=== PATIENT | male | born 1995 | race Caucasian/White ===

== ENCOUNTER 2017-10-23 09:19 | Emergency (ER) | payer BC, SELFPAY ==
[2017-10-23 09:37] VITALS: BP 122/71; PULSE 70; RESP 16; TEMP 36.9; O2SAT 99
--- NOTE | 2017-10-23 10:06 | DI.REPORT_ITS ---
SYMPTOM/DIAGNOSIS: LAT MAL PAIN AFTER HEARING POP LEFT ANKLE: There is mild soft tissue swelling around the malleoli. No fracture or ankle mortise widening is seen. IMPRESSION: Negative left ankle.
[2017-10-23 10:10] VITALS: TEMP 36.9
[2017-10-23] MEDS: Ibuprofen 800 MG TAB PO (10:10)
[2017-10-23] MEDS: Acetaminophen 500 MG TAB 1000 MG PO (10:10)
--- NOTE | 2017-10-23 10:11 | ED.GENADUL_ITS ---
Disposition Clinical Impression: Left ankle pain Disposition: HOME Condition: Good Instructions: Ankle Sprain (ED), RICE Therapy (ED) Additional Instructions: Please use the brace and crutches as directed. Please use ice, Tylenol and Motrin as directed. Please follow-up with the primary care provider that we will provide you. If you notice any worsening of your symptoms, or any new symptoms such as calf pain, worsening leg pain, vomiting, diarrhea, fever, chills, shortness of breath, chest pain, numbness, weakness, or fainting , please return immediately to the emergency department for reevaluation. Please follow up with your primary care provider as soon as possible for reassessment and reevaluation. As always, it was a pleasure participating in your medical care today. Prescriptions: Acetaminophen [Tylenol Extra Strength] 1,000 mg PO Q6H 5 Days #60 tab Ibuprofen [Motrin Ib] 600 mg PO Q6H 5 Days #60 tablet Medical Decision Making - Medical Decision Making This is a 22-year-old male who was playing on a trampoline when he landed on his left ankle and heard an audible pop. Since earlier yesterday. He has been able to walk but with pain and a limp since then. Exam demonstrates tenderness in the lateral malleoli and inferior to this, with some ligamentous laxity of the ankle. This is very mild on exam though. I expect that he has had a anterior talofibular ligament tear, but with no significant fracture noted on x- ray, I feel that he can have an ankle stabilizing brace, Tylenol, Motrin, ice and crutches. Patient does not have a primary care provider as he recently moved to the area, and so we will give him a PCP for follow-up. We discussed red flags which to return the patient understands. Diagnosis ankle sprain. I have extensively reviewed the treatment plan and discharge instructions with the patient and their family. I have addressed all patient concerns at this time. The patient and family was made aware of what symptoms to monitor for that would warrant a return to the emergency department. Discussed the plan with the patient and family, they demonstrate verbal understanding and agreement with our assessment and plan at this time. History of Present Illness - General Chief complaint: Orthopedic Stated complaint: KNEE PROBLEM Time Seen by Provider: 10/23/17 10:06 - History of Present Illness Initial comments: This is a 22-year-old male with no past medical history who presents today for evaluation of left ankle pain. The patient states that yesterday he was jumping on a trampoline when he landed on his left ankle slightly inverted, and heard a popping sound notable pain. Since then he has had mild pain with walking, but is able to ambulate with a limp. He denies any radiation of the pain of the knee or down the foot. He denies any other past medical history. Previous surgical history includes left knee repair for his ACL. Patient denies any IV or illicit drug use. He denies any pertinent family history. - Related Data Acetaminophen [Tylenol Extra Strength] 1,000 mg PO Q6H 5 Days #60 tab 10/23/17 Ibuprofen [Motrin Ib] 600 mg PO Q6H 5 Days #60 tablet 10/23/17 Allergies Allergy/AdvReac Type Severity Reaction Status Date / Time No Known Allergies Allergy Unverified 10/23/17 09:40 Review of Systems Other: 10 point review of systems was performed, pertinent positives and negatives are noted in the history of present illness. Past Medical History - Past Medical History Medical history: no medical history Surgical history: no surgical history - Social History Alcohol use: none Drug use: none General Exam - Other Other exam information: 1.Const: Well-nourished, Well-developed, appearing stated age 2.Eyes: PERRL, no conjunctival injection, and symmetrical lids. 3.ENT: Atraumatic external nose and ears. Moist MM. Neck: Symmetric, trachea midline, No thyromegaly. 4.CVS: +S1/S2, No murmurs or gallops. Peripheral pulses 2+ and equal in all extremities. Brisk capillary refill in all extremities. 5.RESP: Unlabored respiratory effort. Clear to auscultation bilaterally. No wheezes rales or rhonchi 6.GI: Soft, Nontender/Nondistended, No hepatosplenomegaly. No guarding or rebound. 7.MSK: Normocephalic/Atraumatic, mild tenderness on the left lateral malleoli, is noted. Some ankle laxity for internal rotation of the ankle and the anterior drawer. Normal flexion and extension of the ankle and normal strength. No tenderness over the medial malleoli, calcaneus, midfoot, or toes. Dorsalis pedis +2 bilaterally. Capillary refill is brisk and intact. Intact sensation throughout. Mild bruising and tenderness on light palpation of the left lateral ankle below the left malleoli. Patient is able to walk with a mild limp. 8.Skin: Warm, Dry. No rashes or lesions. 9.Neuro: load out supervisor II-XII grossly intact. Sensation grossly intact, no focal neurologic deficits. 10.Psych: (AAO) x3. Appropriate mood and affect Course Vital Signs - 24 hr 10/23/17 09:37 Temperature 36.9 C Pulse 70 Respiratory 16 Rate Blood Pressure 122/71 Pulse Oximetry 99
--- NOTE | 2017-10-24 08:07 | PDOC.ERCMPRO ---
Care Management Progress Note 10/24-Dr. Seals requested assistance with a PCP ([place] [facility] childhood education specialist) f/u appt within two weeks for ankle sprain. Patient also needs to establish care. Moved here recently from [facility]. Referral faxed to [facility] this am.
--- NOTE | 2017-10-24 08:09 | CMPROGNOTE_ITS ---
Care Management Progress Note 10/24-Dr. 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 Patient also needs to establish care. Moved here recently from [facility]. Referral faxed to [facility] this am.
== END 2017-10-23 11:00 | disposition home or self-care (01) ==
LOC: ER 05-20 12:40
PROVIDERS: Emergency Provider Student in an Organized Health Care Education/Training Program
DX: M25.572 Pain in left ankle and joints of left foot (principal); X50.9XXA Other and unspecified overexertion or strenuous movements or postures, initial encounter; Y93.44 Activity, trampolining
CPT/HCPCS: 29515; 99283; 73610; E0114; L1902

== ENCOUNTER 2018-01-17 19:56 | Emergency (ER) | payer BC, SELFPAY ==
[2018-01-17 20:01] VITALS: BP 130/59; PULSE 81; RESP 18; TEMP 36.8; O2SAT 97
--- NOTE | 2018-01-17 20:21 | W.ED.GENAD ---
Discharge Plan Disposition Patient Disposition: HOME Condition: Fair Discharge Details Chief Complaint: Urinary Clinical Impression: Scrotal mass Primary Care Provider: Annabel,Local ED Provider: Daniela Carmen Home Meds and New Rx's Prescriptions: Continue acetaminophen [Mapap Extra Strength] 500 MG tablet 1,000 mg PO Q6H PRNRF: 0 Ibuprofen [Motrin Ib] 200 MG Tablet 600 mg PO Q6H PRNRF: 0 Discharge Instructions Additional Instructions: He will need an outpatient ultrasound to further evaluate this. You should hear from ultrasound tomorrow. If you do not hear from them tomorrow morning, please call the office [phone]. After the ultrasound has been performed, you will need to follow-up promptly with urologist to discuss the results. I have asked our landcare facilitator to help with this, if you do not hear from them tomorrow morning, please call to schedule appointment with Dr. Chaudhari [phone]. I have also asked her landcare facilitator help facilitate follow-up with primary care. If you develop abdominal pain, nausea/vomiting, change in urination, discoloration, swelling or pain in the testicles please seek care urgently once again. Referrals: Ankur Chaudhari MD [ [facility] STAFF PHYSICIAN] - ([phone]) Medical Decision Making Patient is a 22 year old male, presenting today with c/c of left testicular mass. States that he first noted this today. Has never noted this previously, does not preform regular testicular exams. Denies any pain, no recent trauma. No change in urinary habits, no penile discharge. No new sexual partners. On exam, patient has a 1.5cm circular soft mass along the superior anterior left testicle. No pain with palpation. Well defined, does not seem to be subQ. More in the scrotum. Does not feel to be attached to the testicle. Testicle is without abnormality, no pain, no enlargement or swelling. No pain over he epididymis. We do not have US available at this time. As there is no indication at this point for emergent diagnosis such as abscess, testicular torsion, epididymidis, I feel that outpatient evaluation is appropriate. Referral has been requested for the patient ot have outpatient US tomorrow with f/u with Dr. Chaudhari as soon as possible to go over the results and discuss treatment options. Patient was given strict return precautions. He has also requested PCP, when he was here last appointment was made in [facility] but he is unable to get transportation to this area. Needs referral to closer facility. All of his questions and concerns were addressed, he is in agreement with this plan. HPI General Mode of arrival: ambulatory. Date/Time Provider Initiated Documentation: 01/17/18 20:06. Limitations to Documentation: no limitations. Information obtained by: patient. History of Present Illness 22 year old M presents to the emergency department with the chief complaint of left testicular mass, described as mild (denies any pain ), and is localized to the genitals and left. Patient denies abdomen. Patient started experiencing this hour(s) (first noted today) and it has been constant. Patient notes no other symptoms.; denies cough, fever/chills, nausea/vomiting and shortness of breath. Patient did receive the following treatments prior to arrival, none Related Data Home Medications Medication Instructions Recorded Confirmed Ibuprofen [Motrin Ib] 600 mg PO Q6H PRN 01/17/18 01/17/18 acetaminophen [Mapap Extra 1,000 mg PO Q6H PRN 01/17/18 01/17/18 Strength] Allergies Allergy/AdvReac Type Severity Reaction Status Date / Time No Known Allergies Allergy Unverified 01/17/18 20:04 General Stated Complaint: Urinary VERNON: 4 Review of Systems Constitutional Reports as per HPI, Denies chills and Denies fever(s) Respiratory Denies cough Gastrointestinal Reports as per HPI, Denies abdominal pain, Denies change in bowel habits, Denies nausea and Denies vomiting Genitourinary Reports as per HPI, Denies hematuria, Denies erectile dysfunction, Denies genital lesions, Denies genital pain, Denies dysuria, Denies flank pain, Denies penile discharge, Denies scrotal swelling, Reports testicular mass, Denies testicular pain and Denies urinary frequency Musculoskeletal Denies back pain Integumentary/Breasts Reports as per HPI, Denies erythema, Denies rash and Denies wounds [facility] Social History Smoking/Tobacco Use Status: Current every day Exam Const General: cooperative, healthy appearing, comfortable, no acute distress, well developed and well groomed Nutritional Appearance: average body habitus and well nourished Orientation: alert and awake Resp Effort & Inspection: normal respiratory effort, able to speak in complete sentences and no respiratory distress Auscultation: clear to auscultation bilaterally, no rales, no rhonchi and no wheezes Cardio Rate: regular rate Rhythm: regular rhythm Heart Sounds: S1 normal and S2 normal GI Inspection: normal to inspection and non-distended Palpation: soft, no hepatosplenomegaly, not firm, no guarding, not rigid and nontender Auscultation: normal bowel sounds Male General Exam: No ecchymosis, No edema, No erythema, No inguinal lymphadenopathy, No lacerations, No lesions and No tenderness Penis: normal penis Meatus: meatus normal and no meatla discharge Scrotum: scrotum abnormal (patient has a 1.5cm circular mass that is fluctuant and soft on palpation. Located anteriorly and superior to the left testes. No pain. No skin changes. No wounds or lesions), no ecchymosis, not erythematous, no inguinal hernias, scrotal mass, no scrotal swelling and no ulcerations Testes: normal, testicular lie normal, epididymides normal, not enlarged, no testicular swelling and no testicular tenderness Back/Spine/Pelvis Back: no CVA tenderness Skin General skin exam: no rashes or lesions noted Trauma: no lacerations or abrasions Neuro General: alert and awake Cognition: normal cognition Speech: speech normal Gait: normal gait Psych Appearance: grossly normal and well kempt Mental Status: mental status grossly normal Speech and Movement: speech and movement normal Course Vital Signs Temperature 36.8 C 01/17/18 20:01 Pulse 81 01/17/18 20:01 Respiratory Rate 18 01/17/18 20:01 Blood Pressure 130/59 L 01/17/18 20:01 Pulse Oximetry 97 01/17/18 20:01 Temperature 36.8 C 01/17/18 20:01 Temperature Source Skin 01/17/18 20:01 Pulse 81 01/17/18 20:01 Respiratory Rate 18 01/17/18 20:01 Respiratory Effort Non-Labored 01/17/18 20:03 Blood Pressure 130/59 L 01/17/18 20:01 Blood Pressure Position Sitting 01/17/18 20:01 Pulse Oximetry 97 01/17/18 20:01 Oxygen Delivery Method Room Air 01/17/18 20:01 Oxygen Flow Rate 0 01/17/18 20:01 Pain Level 0 01/17/18 20:01
--- NOTE | 2018-01-17 23:55 | ED.GENADUL_ITS ---
Discharge Plan Disposition Patient Disposition: HOME Condition: Fair Discharge Details Chief Complaint: Urinary Clinical Impression: Scrotal mass Primary Care Provider: Annabel,Local ED Provider: Daniela Carmen Home Meds and New Rx's Prescriptions: Continue acetaminophen [Mapap Extra Strength] 500 MG tablet 1,000 mg PO Q6H PRNRF: 0 Ibuprofen [Motrin Ib] 200 MG Tablet 600 mg PO Q6H PRNRF: 0 Discharge Instructions Additional Instructions: He will need an outpatient ultrasound to further evaluate this. You should hear from ultrasound tomorrow. If you do not hear from them tomorrow morning, please call the office [phone]. After the ultrasound has been performed, you will need to follow-up promptly with urologist to discuss the results. I have asked our lawn caretaker to help with this, if you do not hear from them tomorrow morning, please call to schedule appointment with Dr. Chaudhari . I have also asked her lawn caretaker help facilitate follow-up with primary care. If you develop abdominal pain, nausea/vomiting, change in urination, discoloration, swelling or pain in the testicles please seek care urgently once again. Referrals: Ankur Chaudhari MD [ [facility] STAFF PHYSICIAN] - ([phone]) Medical Decision Making Patient is a 22 year old male, presenting today with c/c of left testicular mass. States that he first noted this today. Has never noted this previously, does not preform regular testicular exams. Denies any pain, no recent trauma. No change in urinary habits, no penile discharge. No new sexual partners. On exam, patient has a 1.5cm circular soft mass along the superior anterior left testicle. No pain with palpation. Well defined, does not seem to be subQ. More in the scrotum. Does not feel to be attached to the testicle. Testicle is without abnormality, no pain, no enlargement or swelling. No pain over he epididymis. We do not have US available at this time. As there is no indication at this point for emergent diagnosis such as abscess, testicular torsion, epididymidis, I feel that outpatient evaluation is appropriate. Referral has been requested for the patient ot have outpatient US tomorrow with f/u with Dr. Chaudhari as soon as possible to go over the results and discuss treatment options. Patient was given strict return precautions. He has also requested PCP, when he was here last appointment was made in [facility] but he is unable to get transportation to this area. Needs referral to closer facility. All of his questions and concerns were addressed, he is in agreement with this plan. HPI General Mode of arrival: ambulatory . Date/Time Provider Initiated Documentation: 01/17/18 20:06 . Limitations to Documentation: no limitations . Information obtained by: patient . History of Present Illness 22 year old M presents to the emergency department with the chief complaint of left testicular mass, described as mild (denies any pain ), and is localized to the genitals and left. Patient denies abdomen. Patient started experiencing this hour(s) (first noted today) and it has been constant. Patient notes no other symptoms.; denies cough, fever/chills, nausea/vomiting and shortness of breath. Patient did receive the following treatments prior to arrival, none Related Data Home Medications Medication Instructions Recorded Confirmed Ibuprofen [Motrin Ib] 600 mg PO Q6H PRN 01/17/18 01/17/18 acetaminophen [Mapap Extra 1,000 mg PO Q6H PRN 01/17/18 01/17/18 Strength] Allergies Allergy/AdvReac Type Severity Reaction Status Date / Time No Known Allergies Allergy Unverified 01/17/18 20:04 General Stated Complaint: Urinary VERNON: 4 Review of Systems Constitutional Reports as per HPI, Denies chills and Denies fever(s) Respiratory Denies cough Gastrointestinal Reports as per HPI, Denies abdominal pain, Denies change in bowel habits, Denies nausea and Denies vomiting Genitourinary Reports as per HPI, Denies hematuria, Denies erectile dysfunction, Denies genital lesions, Denies genital pain, Denies dysuria, Denies flank pain, Denies penile discharge, Denies scrotal swelling, Reports testicular mass, Denies testicular pain and Denies urinary frequency Musculoskeletal Denies back pain Integumentary/Breasts Reports as per HPI, Denies erythema, Denies rash and Denies wounds [facility] Social History Smoking/Tobacco Use Status: Current every day Exam Const General: cooperative, healthy appearing, comfortable, no acute distress, well developed and well groomed Nutritional Appearance: average body habitus and well nourished Orientation: alert and awake Resp Effort & Inspection: normal respiratory effort, able to speak in complete sentences and no respiratory distress Auscultation: clear to auscultation bilaterally, no rales, no rhonchi and no wheezes Cardio Rate: regular rate Rhythm: regular rhythm Heart Sounds: S1 normal and S2 normal GI Inspection: normal to inspection and non-distended Palpation: soft, no hepatosplenomegaly, not firm, no guarding, not rigid and nontender Auscultation: normal bowel sounds Male General Exam: No ecchymosis, No edema, No erythema, No inguinal lymphadenopathy, No lacerations, No lesions and No tenderness Penis: normal penis Meatus: meatus normal and no meatla discharge Scrotum: scrotum abnormal (patient has a 1.5cm circular mass that is fluctuant and soft on palpation. Located anteriorly and superior to the left testes. No pain. No skin changes. No wounds or lesions), no ecchymosis, not erythematous, no inguinal hernias, scrotal mass, no scrotal swelling and no ulcerations Testes: normal, testicular lie normal, epididymides normal, not enlarged, no testicular swelling and no testicular tenderness Back/Spine/Pelvis Back: no CVA tenderness Skin General skin exam: no rashes or lesions noted Trauma: no lacerations or abrasions Neuro General: alert and awake Cognition: normal cognition Speech: speech normal Gait: normal gait Psych Appearance: grossly normal and well kempt Mental Status: mental status grossly normal Speech and Movement: speech and movement normal Course Vital Signs Temperature 36.8 C 01/17/18 20:01 Pulse 81 01/17/18 20:01 Respiratory Rate 18 01/17/18 20:01 Blood Pressure 130/59 L 01/17/18 20:01 Pulse Oximetry 97 01/17/18 20:01 Temperature 36.8 C 01/17/18 20:01 Temperature Source Skin 01/17/18 20:01 Pulse 81 01/17/18 20:01 Respiratory Rate 18 01/17/18 20:01 Respiratory Effort Non-Labored 01/17/18 20:03 Blood Pressure 130/59 L 01/17/18 20:01 Blood Pressure Position Sitting 01/17/18 20:01 Pulse Oximetry 97 01/17/18 20:01 Oxygen Delivery Method Room Air 01/17/18 20:01 Oxygen Flow Rate 0 01/17/18 20:01 Pain Level 0 01/17/18 20:01
== END 2018-01-17 20:56 | disposition home or self-care (01) ==
LOC: ER 20:58
PROVIDERS: Emergency Provider Physician Assistant
DX: N50.9 Disorder of male genital organs, unspecified (principal)
CPT/HCPCS: 99281; 99282

== ENCOUNTER 2018-01-18 10:23 | Outpatient (CLI) | payer BC, SELFPAY ==
--- NOTE | 2018-01-18 07:48 | DI.US_ITS ---
SYMPTOM/DIAGNOSIS: LT SCROTAL MASS SCROTAL ULTRASOUND: 01/18/18 Scrotal ultrasound was performed according to the usual protocol. The testes are normal in echotexture and show bilaterally symmetrical normal vascular flow and Doppler evaluation. The epididymis appear normal. No significant hydrocele on either side. There is a small fluid collection which appears to correspond to the area of the patient's palpable abnormality which may lie in the left inguinal canal. This could represent a small hernia sac containing peritoneal fluid. No solid mass identified. CONCLUSION: Negative scrotal ultrasound for intratesticular mass. Possible fluid containing left inguinal hernia. Correlation with CT recommended.
== END 2018-01-18 10:43 ==
PROVIDERS: Visit Provider Physician Assistant
DX: N50.9 Disorder of male genital organs, unspecified (principal); K40.90 Unilateral inguinal hernia, without obstruction or gangrene, not specified as recurrent
CPT/HCPCS: 76870

== ENCOUNTER 2018-01-29 00:53 | Outpatient (CLI) | payer BC, SELFPAY ==
--- NOTE | 2018-01-29 07:50 | DI.CT_ITS ---
SYMPTOM/DIAGNOSIS: SWELLING AND ? OF DEFINITIVE INGUINAL HERNIA K40.90 CT ABDOMEN AND PELVIS: Comparison is made with testicular ultrasound dated 18 Jan 2018. Images were performed from the lung bases through the ischial tuberosities after IV and oral contrast. There is a small amount of fat in the inguinal canal as well as a small amount of fluid. No focal fluid collection, mass or adenopathy is seen. The lung bases are clear. Liver, spleen, kidneys, pancreas, gallbladder and adrenals are unremarkable. The bowel appears normal. The appendix is normal. The urinary bladder and prostate appear normal. No bony abnormalities are seen. IMPRESSION: Minimal amount of fat and small amount of fluid within the left inguinal canal.
[2018-01-29] MEDS: Breeza Beverage 473 ML BTL PO ×2 (08:04→08:05)
[2018-01-29] MEDS: Omnipaque 350 MG/ML 100 ML BTL IJ (09:08)
== END 2018-01-29 01:13 ==
PROVIDERS: Visit Provider Nurse Practitioner Gerontology
DX: K40.90 Unilateral inguinal hernia, without obstruction or gangrene, not specified as recurrent (principal)
CPT/HCPCS: 74177; J3490